=== PATIENT | female | born 1940 | race Hispanic/Latino ===

== ENCOUNTER 2017-10-11 22:06 | Emergency (ER) | payer MEDICARE | END 2017-10-11 22:53 | disposition home or self-care (01) | LOC: EDH 22:06 | DX: K64.9 Unspecified hemorrhoids (principal); R05 Cough; E78.5 Hyperlipidemia, unspecified; E11.9 Type 2 diabetes mellitus without complications; I10 Essential (primary) hypertension ==

== ENCOUNTER 2018-09-03 15:09 | Emergency (ER) | payer MEDICARE ==
[2018-09-03] MEDS ORDERED: LIDOCAINE HCL-MPF 1% 2ML VIAL ONE (15:29)
[2018-09-03] MEDS ORDERED: CEFTRIAXONE SODIUM 1 GM ONE (15:29)
== END 2018-09-03 15:53 | disposition home or self-care (01) ==
LOC: EDH 15:09
DX: K04.7 Periapical abscess without sinus (principal); I10 Essential (primary) hypertension; E11.9 Type 2 diabetes mellitus without complications; E78.5 Hyperlipidemia, unspecified
CPT/HCPCS: 96372; 99283; J0696; J3490